=== PATIENT | female | born 1985 | race Two or more races ===

== ENCOUNTER 2024-09-03 20:45 | Emergency (ER) | payer BC ==
[~2024-09-03] VITALS: Ht 160 cm; Wt 79.4 kg
[2024-09-03] MEDS ORDERED: FAMOTIDINE/PF 20 MG in 0.9 % SODIUM CHLORIDE 8 ML IV PUSH STA (21:27)
[2024-09-03] MEDS ORDERED: DIPHENOXYLATE HCL/ATROPINE 1 UDTAB TABLET PO ONE (21:30)
[2024-09-03] MEDS ORDERED: KETOROLAC TROMETHAMINE 30 MG VIAL IV ONE (21:30)
[2024-09-03] MEDS ORDERED: ONDANSETRON HCL 2 MG/ML VIAL IV ONE (21:30)
[2024-09-03] MEDS ORDERED: 0.9 % SODIUM CHLORIDE 1,000 ML IV SCH (21:30)
[2024-09-03] MEDS ORDERED: KETOROLAC TROMETHAMINE 30 MG VIAL ONE (21:30)
[2024-09-03] MEDS ORDERED: ONDANSETRON HCL 2 MG/ML VIAL ONE (21:30)
[2024-09-03] MEDS ORDERED: FAMOTIDINE/PF 20 MG/2 ML VIAL ONE (21:30)
[2024-09-03 21:51] LABS: BASO % 0.1 % (0.1-1.2); EOS # 0.02 (0.04-0.54); EOS % 0.2 % (0.7-7.0); HEMATOCRIT 39.3 % (34.1-44.9); HEMOGLOBIN 13.4 g/dL (11.2-15.7); LYMPH % 4.8 % (19.3-53.1); MEAN CORPUSCULAR HEMOGLOBIN 28.1 pg (25.6-32.2); MONO # 0.17 (0.24-0.82); MONO % 1.6 % (4.7-12.5); NEUT # 9.66 (1.56-6.13); NEUT % 93.1 % (34.0-71.1); PLATELET COUNT 191 K/uL (163-369); RED BLOOD COUNT 4.77 M/uL (3.93-5.22); RED CELL DISTRIBUTION WIDTH 12.6 % (11.6-14.4)
[2024-09-03 22:15] LABS: ALBUMIN 4.1 gm/dL (3.4-5.0); BILIRUBIN TOTAL 0.74 mg/dL (0.3-1.2); BILIRUBIN,CONJUGATED 0.16 mg/dL (0.0-0.2); BILIRUBIN,UNCONJUGATED 0.58 mg/dL (0.0-0.6); CALCIUM 8.5 mg/dL (8.5-10.1); CREATININE SERUM 0.71 mg/dL (0.55-1.02); GFR 92.63; GLOBULINA 4.2 G/DL (2.4-3.5); POTASSIUM 3.67 mEq/L (3.5-5.1); TOTAL PROTEIN 8.3 gm/dL (6.4-8.2)
[2024-09-03] MEDS ORDERED: PEPCID AC20 MG PO (22:48)
[2024-09-03] MEDS ORDERED: ONDANSETRON ODT8 MG PO (22:48)
[2024-09-04] MEDS ORDERED: METRONIDAZOLE500 MG PO (21:30)
[2024-09-04] MEDS ORDERED: PEPCID AC20 MG PO (21:30)
[2024-09-04] MEDS ORDERED: PROBIOTIC1 EAC2 PO (21:30)
[2024-09-04] MEDS ORDERED: CIPRO500 MG PO (21:30)
== END 2024-09-04 00:13 | disposition home or self-care (01) ==
LOC: ER 20:45
PROVIDERS: General Practice
DX: K52.89 Other specified noninfective gastroenteritis and colitis (principal); R11.2 Nausea with vomiting, unspecified

== ENCOUNTER 2024-09-04 18:26 | Emergency (ER) | payer BC ==
[~2024-09-04] VITALS: Ht 160 cm; Wt 56.7 kg
[~2024-09-04 18:26] MED LIST: ONDANSETRON ODT8 MG PO; PEPCID AC20 MG PO
[2024-09-04] MEDS ORDERED: CIPROFLOXACIN IN 5 % DEXTROSE 400 MG/200 ML PIGGYBAG IV ONE ×2 (19:15→19:29)
[2024-09-04] MEDS ORDERED: 0.9 % SODIUM CHLORIDE 1,000 ML IV ONE (19:15)
[2024-09-04] MEDS ORDERED: FAMOtidine 10 MG/ML (4ML VIAL) IV ONE (19:15)
[2024-09-04] MEDS ORDERED: ONDANSETRON HCL 2 MG/ML VIAL IV ONE (19:15)
[2024-09-04] MEDS ORDERED: ONDANSETRON HCL 2 MG/ML VIAL ONE (19:29)
[2024-09-04] MEDS ORDERED: FAMOTIDINE/PF 20 MG/2 ML VIAL ONE (19:30)
[2024-09-04] MEDS ORDERED: PEPCID AC20 MG PO (21:30)
[2024-09-04] MEDS ORDERED: CIPRO500 MG PO (21:30)
[2024-09-04] MEDS ORDERED: METRONIDAZOLE500 MG PO (21:30)
[2024-09-04] MEDS ORDERED: PROBIOTIC1 EAC2 PO (21:30)
== END 2024-09-04 21:45 | disposition home or self-care (01) ==
LOC: ER 18:37
DX: R19.7 Diarrhea, unspecified (principal)